=== PATIENT | male | born 1955 | race Caucasian/White ===

== ENCOUNTER → 2016-04-19 | Outpatient (CLI) | payer BC ==
[~2016-04-19] MED LIST: ALLEGRA-D 24 HO1 T24 PO; ASPIR LOW81 MG PO; FLONASE ALLERG9.9 ML NS
== END ==
LOC: LAB 15:23
DX: Z00.00 Encounter for general adult medical examination without abnormal findings (principal); Z12.5 Encounter for screening for malignant neoplasm of prostate

== ENCOUNTER → 2016-04-25 | Outpatient (CLI) | payer BC ==
[2014-11-20 09:34] VITALS: BP 116/76
== END ==
LOC: LAB 11:55
DX: Z12.11 Encounter for screening for malignant neoplasm of colon (principal)

== ENCOUNTER → 2017-05-09 | Outpatient (CLI) | payer BC ==
[2014-11-20 09:34] VITALS: BP 116/76
[2017-05-09 16:07] LABS: BASO # 0.1 (0.02-0.10); EOS # 0.3 (0.04-0.40); EOS % 4.7 % (0.0-4.0); HEMATOCRIT 44.1 % (42.0-52.0); HEMOGLOBIN 15.4 g/dL (13.5-18.0); LYMPH# 1.5 (1.50-4.00); MEAN CELL VOLUME 87 fl (78-100); MEAN CORPUSCULAR HEMOGLOBIN 30 pg (27-31); MEAN CORPUSCULAR HGB CONC 35 g/dL (33-37); MEAN PLATELET VOLUME 9.9 fl (7.4-10.4); MONO # 0.5 (0.20-0.80); NEU # 3.5 (1.40-6.50); PLATELET COUNT 181 K/mm3 (130-400); RED BLOOD COUNT 5.06 M/mm3 (4.20-5.60); RED CELL DISTRIBUTION WIDTH 13.1 % (11.5-14.5); WHITE BLOOD COUNT 5.7 K/mm3 (4.8-10.8)
[2017-05-09 16:20] LABS: ALBUMIN 4.2 g/dL (3.5-5.0); BUN/CREATININE RATIO 23.2 (6.0-26.0); CALCIUM 9.4 mg/dL (8.4-10.2); POTASSIUM 4.5 mmol/L (3.6-5.0); TOTAL BILIRUBIN 0.7 mg/dL (0.2-1.3); TOTAL PROTEIN 7.5 g/dL (6.3-8.2)
[2017-05-09 17:19] LABS: ERYTHROCYTE SEDIMENTATION RATE 3 mm/hr (0-20)
[2017-05-09 21:17] LABS: PH-URINE 6.5 (5.0 - 8.0); URINE APPEARANCE CLEAR; URINE BILIRUBIN NEGATIVE (NEGATIVE); URINE BLOOD NEGATIVE (NEGATIVE); URINE COLOR YELLOW; URINE GLUCOSE NEGATIVE (NEGATIVE); URINE KETONE NEGATIVE (NEGATIVE); URINE LEUKOCYTE ESTERASE NEGATIVE (NEGATIVE); URINE NITRATE NEGATIVE (NEGATIVE); URINE PROTEIN(semi-quant) NEGATIVE (NEGATIVE); URINE UROBILINOGEN NORMAL (NORMAL); URINE WBC 0-1 /hpf (0-3)
[2017-05-09 23:41] LABS: TESTOSTERONE 404 ng/dL (221-716)
== END ==
LOC: LAB 15:44
PROVIDERS: Internal Medicine
DX: Z12.5 Encounter for screening for malignant neoplasm of prostate (principal); Z00.00 Encounter for general adult medical examination without abnormal findings; Z12.11 Encounter for screening for malignant neoplasm of colon

== ENCOUNTER → 2017-05-15 | Outpatient (CLI) | payer BC ==
[2014-11-20 09:34] VITALS: BP 116/76
== END ==
LOC: LAB 12:13
DX: Z00.00 Encounter for general adult medical examination without abnormal findings (principal); Z12.11 Encounter for screening for malignant neoplasm of colon

== ENCOUNTER → 2017-11-29 | Outpatient (CLI) | payer BC ==
[2014-11-20 09:34] VITALS: BP 116/76
[2017-11-29 14:32] LABS: ALBUMIN 4.3 g/dL (3.5-5.0); CALCIUM 9.2 mg/dL (8.4-10.2); POTASSIUM 4.4 mmol/L (3.6-5.0); TOTAL BILIRUBIN 0.9 mg/dL (0.2-1.3); TOTAL PROTEIN 7.1 g/dL (6.3-8.2)
== END ==
LOC: LAB 13:54
PROVIDERS: Internal Medicine
DX: E11.65 Type 2 diabetes mellitus with hyperglycemia (principal)

== ENCOUNTER → 2018-08-23 | Outpatient (CLI) | payer BC ==
[2014-11-20 09:34] VITALS: BP 116/76
[2018-08-23 12:08] LABS: BASO # 0.1 (0.02-0.10); EOS # 0.3 (0.04-0.40); HEMATOCRIT 44.2 % (42.0-52.0); HEMOGLOBIN 15.2 g/dL (13.5-18.0); LYMPH# 1.3 (1.50-4.00); MEAN CELL VOLUME 87 fl (78-100); MEAN CORPUSCULAR HEMOGLOBIN 30 pg (27-31); MEAN CORPUSCULAR HGB CONC 34 g/dL (33-37); MONO # 0.4 (0.20-0.80); PLATELET COUNT 170 K/mm3 (130-400); RED BLOOD COUNT 5.07 M/mm3 (4.20-5.60); RED CELL DISTRIBUTION WIDTH 13.3 % (11.5-14.5)
[2018-08-23 12:40] LABS: ALBUMIN 4.2 g/dL (3.4-4.8); CALCIUM 9.9 mg/dL (8.3-10.5); POTASSIUM 5.5 mmol/L (3.5-5.1); TOTAL BILIRUBIN 0.8 mg/dL (0.2-1.2); TOTAL PROTEIN 7.1 g/dL (6.2-8.1)
[2018-08-23 12:56] LABS: EOS % 5.2 % (0.0-4.0)
[2018-08-23 13:10] LABS: ERYTHROCYTE SEDIMENTATION RATE 5 mm/hr (0-20)
[2018-08-23 22:36] LABS: CREATININE OTHER SOURCE 68 mg/dL (())
== END ==
LOC: LAB 11:44
PROVIDERS: Internal Medicine
DX: Z00.00 Encounter for general adult medical examination without abnormal findings (principal); Z12.5 Encounter for screening for malignant neoplasm of prostate; Z12.11 Encounter for screening for malignant neoplasm of colon; E11.65 Type 2 diabetes mellitus with hyperglycemia

== ENCOUNTER → 2018-08-31 | Outpatient (CLI) | payer BC ==
[2014-11-20 09:34] VITALS: BP 116/76
== END ==
LOC: LAB 10:39
DX: Z00.00 Encounter for general adult medical examination without abnormal findings (principal); Z12.11 Encounter for screening for malignant neoplasm of colon; E11.65 Type 2 diabetes mellitus with hyperglycemia

== ENCOUNTER → 2019-09-16 | Outpatient (CLI) | payer BC ==
[2014-11-20 09:34] VITALS: BP 116/76
[2019-09-16 09:22] LABS: EOS # 0.2 (0.04-0.40); EOS % 3.6 % (0.0-4.0); HEMATOCRIT 42.6 % (42.0-52.0); LYMPH# 1.1 (1.50-4.00); MEAN CELL VOLUME 86 fl (78-100); MEAN CORPUSCULAR HEMOGLOBIN 30 pg (27-31); MEAN CORPUSCULAR HGB CONC 35 g/dL (33-37); MEAN PLATELET VOLUME 9.5 fl (7.4-10.4); MONO # 0.4 (0.20-0.80); NEU # 3.3 (1.40-6.50); PLATELET COUNT 155 K/mm3 (130-400); RED BLOOD COUNT 4.93 M/mm3 (4.20-5.60)
[2019-09-16 09:33] LABS: ALBUMIN 4.1 g/dL (3.4-4.8); POTASSIUM 4.3 mmol/L (3.5-5.1)
[2019-09-16 09:34] LABS: CALCIUM 9.1 mg/dL (8.3-10.5)
[2019-09-16 09:36] LABS: TOTAL PROTEIN 6.9 g/dL (6.2-8.1)
[2019-09-16 09:38] LABS: TOTAL BILIRUBIN 0.7 mg/dL (0.2-1.2)
[2019-09-16 10:58] LABS: ERYTHROCYTE SEDIMENTATION RATE 6 mm/hr (0-20)
== END ==
LOC: LAB 09:06
PROVIDERS: Internal Medicine
DX: Z00.00 Encounter for general adult medical examination without abnormal findings (principal); Z12.5 Encounter for screening for malignant neoplasm of prostate; Z12.11 Encounter for screening for malignant neoplasm of colon

== ENCOUNTER → 2019-09-20 | Outpatient (CLI) | payer BC ==
[2014-11-20 09:34] VITALS: BP 116/76
== END ==
LOC: LAB 13:55
DX: Z00.00 Encounter for general adult medical examination without abnormal findings (principal); Z12.11 Encounter for screening for malignant neoplasm of colon

== ENCOUNTER → 2020-09-11 | Outpatient (CLI) | payer BC ==
[2020-09-11 16:38] LABS: BASO # 0.05 (0.02-0.10); EOS # 0.22 (0.04-0.40); EOS % 4.3 % (0.0-4.0); HEMATOCRIT 41.2 % (42.0-52.0); HEMOGLOBIN 14.5 g/dL (13.5-18.0); MEAN CELL VOLUME 87 fl (78-100); MEAN CORPUSCULAR HEMOGLOBIN 31 pg (27-31); MEAN CORPUSCULAR HGB CONC 35 g/dL (33-37); MEAN PLATELET VOLUME 9.8 fl (7.4-10.4); MONO # 0.49 (0.20-0.80); NEU # 3.07 (1.40-6.50); PLATELET COUNT 156 K/mm3 (130-400); RED BLOOD COUNT 4.76 M/mm3 (4.20-5.60); RED CELL DISTRIBUTION WIDTH 12.6 % (11.5-14.5); WHITE BLOOD COUNT 5.1 K/mm3 (4.8-10.8)
[2020-09-11 16:42] LABS: ALBUMIN 4.1 g/dL (3.4-4.8); POTASSIUM 4.5 mmol/L (3.5-5.1)
[2020-09-11 16:43] LABS: CALCIUM 9.2 mg/dL (8.3-10.5)
[2020-09-11 16:47] LABS: TOTAL BILIRUBIN 0.7 mg/dL (0.2-1.2)
[2020-09-11 16:51] LABS: MAGNESIUM 1.98 mg/dL (1.60-2.60)
[2020-09-11 18:06] LABS: ERYTHROCYTE SEDIMENTATION RATE 26 mm/hr (0-20)
[2020-09-14 23:10] LABS: URINE APPEARANCE HAZY; URINE BILIRUBIN NEGATIVE (NEGATIVE); URINE COLOR YELLOW; URINE KETONE NEGATIVE (NEGATIVE); URINE PROTEIN(semi-quant) NEGATIVE (NEGATIVE)
[2020-09-14 23:11] LABS: URINE BLOOD TRACE (NEGATIVE); URINE LEUKOCYTE ESTERASE NEGATIVE (NEGATIVE); URINE NITRATE NEGATIVE (NEGATIVE); URINE UROBILINOGEN NORMAL (NORMAL); URINE WBC 0-1 /hpf (0-3)
== END ==
LOC: LAB 16:15
PROVIDERS: Internal Medicine
DX: Z00.00 Encounter for general adult medical examination without abnormal findings (principal); Z12.5 Encounter for screening for malignant neoplasm of prostate; Z12.11 Encounter for screening for malignant neoplasm of colon

== ENCOUNTER → 2020-09-21 | Outpatient (CLI) | payer BC | LOC: LAB 10:26 | DX: Z00.00 Encounter for general adult medical examination without abnormal findings (principal); Z12.5 Encounter for screening for malignant neoplasm of prostate; Z12.11 Encounter for screening for malignant neoplasm of colon ==

== ENCOUNTER → 2020-10-13 | Outpatient (CLI) | payer BC | LOC: LAB 10:46 | DX: R97.20 Elevated prostate specific antigen [PSA] (principal) ==

== ENCOUNTER → 2021-09-20 | Outpatient (CLI) | payer BC ==
[2021-09-20 12:11] LABS: BASO # 0.05 K/mm3 (0.02-0.10); EOS # 0.27 K/mm3 (0.04-0.40); EOS % 5.5 % (0.0-4.0); HEMATOCRIT 42.3 % (42.0-52.0); HEMOGLOBIN 14.9 g/dL (13.5-18.0); MEAN CELL VOLUME 87 fl (78-100); MEAN CORPUSCULAR HEMOGLOBIN 31 pg (27-31); MEAN CORPUSCULAR HGB CONC 35 g/dL (33-37); MEAN PLATELET VOLUME 9.5 fl (7.4-10.4); MONO # 0.37 K/mm3 (0.20-0.80); NEU # 2.93 K/mm3 (1.40-6.50); PLATELET COUNT 153 K/mm3 (130-400); RED BLOOD COUNT 4.85 M/mm3 (4.20-5.60); RED CELL DISTRIBUTION WIDTH 12.9 % (11.5-14.5); WHITE BLOOD COUNT 4.9 K/mm3 (4.8-10.8)
[2021-09-20 12:15] LABS: ALBUMIN 4.2 g/dL (3.4-4.8); POTASSIUM 5.4 mmol/L (3.5-5.1)
[2021-09-20 12:16] LABS: CALCIUM 10.1 mg/dL (8.3-10.5)
[2021-09-20 12:18] LABS: TOTAL PROTEIN 7.2 g/dL (6.2-8.1)
[2021-09-20 12:20] LABS: TOTAL BILIRUBIN 0.9 mg/dL (0.2-1.2)
[2021-09-20 12:23] LABS: URINE APPEARANCE CLEAR; URINE COLOR YELLOW
[2021-09-20 12:24] LABS: MAGNESIUM 1.9 mg/dL (1.60-2.60); PH-URINE 6.5 (5.0 - 8.0); URINE PROTEIN(semi-quant) NEGATIVE (NEGATIVE)
[2021-09-20 12:25] LABS: URINE BILIRUBIN NEGATIVE (NEGATIVE); URINE BLOOD TRACE (NEGATIVE); URINE KETONE NEGATIVE (NEGATIVE); URINE LEUKOCYTE ESTERASE TRACE (NEGATIVE); URINE NITRATE NEGATIVE (NEGATIVE); URINE UROBILINOGEN NORMAL (NORMAL)
[2021-09-20 22:52] LABS: TESTOSTERONE 401 ng/dL (221-716)
== END ==
LOC: LAB 11:41
PROVIDERS: Internal Medicine
DX: Z00.00 Encounter for general adult medical examination without abnormal findings (principal); Z12.11 Encounter for screening for malignant neoplasm of colon

== ENCOUNTER → 2021-10-15 | Outpatient (CLI) | payer MEDICARE ==
[2021-10-15 08:43] LABS: POTASSIUM 4.6 mmol/L (3.5-5.1)
[2021-10-15 08:44] LABS: CALCIUM 9.6 mg/dL (8.3-10.5)
[2021-10-15 08:46] LABS: TOTAL PROTEIN 6.9 g/dL (6.2-8.1)
[2021-10-15 08:47] LABS: TOTAL BILIRUBIN 0.9 mg/dL (0.2-1.2)
== END ==
LOC: LAB 08:17
PROVIDERS: Internal Medicine
DX: E78.2 Mixed hyperlipidemia (principal); E11.9 Type 2 diabetes mellitus without complications

== ENCOUNTER → 2021-12-01 | Outpatient (CLI) | payer MEDICARE ==
[2021-12-01 15:49] LABS: ALBUMIN 4.3 g/dL (3.4-4.8)
[2021-12-01 15:51] LABS: TOTAL PROTEIN 7.2 g/dL (6.2-8.1)
[2021-12-01 15:57] LABS: DIRECT BILIRUBIN 0.4 mg/dL (0.0-0.5)
== END ==
LOC: LAB 15:32
PROVIDERS: Internal Medicine
DX: E11.9 Type 2 diabetes mellitus without complications (principal); E78.2 Mixed hyperlipidemia

== ENCOUNTER → 2021-12-13 | Outpatient (CLI) | payer MEDICARE | LOC: LAB 14:51 | DX: R97.20 Elevated prostate specific antigen [PSA] (principal); R39.12 Poor urinary stream ==

== ENCOUNTER → 2023-08-28 | Outpatient (CLI) | payer MEDICARE ==
[2023-10-15 15:43] LABS: CREATININE OTHER SOURCE 95.7; HEPATITIS C VIRUS ANTIBODY NON REACTIVE
[2023-10-16 06:00] LABS: ALBUMIN 4.4 g/dL (3.4-4.8); CALCIUM 10.4 mg/dL (8.3-10.5); MAGNESIUM 1.85 mg/dL (1.60-2.60); TOTAL BILIRUBIN 0.8 mg/dL (0.2-1.2); TOTAL PROTEIN 7.3 g/dL (6.2-8.1)
[2023-10-16 06:02] LABS: BASO # 0.04 K/mm3 (0.02-0.10); EOS # 0.19 K/mm3 (0.04-0.40); EOS % 2.5 % (0.0-4.0); HEMATOCRIT 45.1 % (42.0-52.0); HEMOGLOBIN 15.7 g/dL (13.5-18.0); LYMPH# 1.21 K/mm3 (1.50-4.00); MEAN CELL VOLUME 87 fl (78-100); MEAN CORPUSCULAR HEMOGLOBIN 30 pg (27-31); MEAN CORPUSCULAR HGB CONC 35 g/dL (33-37); MEAN PLATELET VOLUME 9.7 fl (7.4-10.4); MONO # 0.45 K/mm3 (0.20-0.80); NEU # 5.69 K/mm3 (1.40-6.50); PLATELET COUNT 166 K/mm3 (130-400); RED CELL DISTRIBUTION WIDTH 12.3 % (11.5-14.5); WHITE BLOOD COUNT 7.6 K/mm3 (4.8-10.8)
[2023-10-16 06:03] LABS: URINE APPEARANCE CLEAR (CLEAR); URINE COLOR YELLOW (YELLOW)
[2023-10-16 06:04] LABS: PH-URINE 5.5 (5.0 - 8.0); URINE BILIRUBIN NEGATIVE (NEGATIVE); URINE BLOOD TRACE-LYSED (NEGATIVE); URINE GLUCOSE 2+ (NEGATIVE); URINE KETONE TRACE (NEGATIVE); URINE LEUKOCYTE ESTERASE NEGATIVE (NEGATIVE); URINE NITRATE NEGATIVE (NEGATIVE); URINE PROTEIN(semi-quant) NEGATIVE (NEGATIVE); URINE WBC 0-1 /hpf (0-3)
== END ==
LOC: LAB 11:18
PROVIDERS: Internal Medicine
DX: Z12.11 Encounter for screening for malignant neoplasm of colon (principal); Z11.59 Encounter for screening for other viral diseases; E78.2 Mixed hyperlipidemia; E11.9 Type 2 diabetes mellitus without complications; K90.9 Intestinal malabsorption, unspecified; R97.8 Other abnormal tumor markers